=== PATIENT | male | born 1960 | race Caucasian/White ===

== ENCOUNTER 2018-05-28 16:46 | Inpatient (IN) | payer SELFPAY ==
[2018-05-28 17:15] LABS: #Lymphocytes 1.2 thou/uL (1.20-3.40); #Monocytes 0.4 thou/uL (0.11-0.59); %Basophils 0.6 % (0.0-1.0); %Eosinophils 0.4 % (0.0-10.0); %Lymphocytes 18.1 % (21.0-51.0); %Monocytes 5.3 % (0.0-10.0); %Neutrophils 75.6 % (42.0-75.0); Hemoglobin 11.7 g/dL (14.0-18.0); Mean Corpuscular HGB CONC 33.1 g/dL (32.0-36.0); Mean Corpuscular Hemoglobin 32.3 pg (27.0-31.0); Mean Corpuscular Volume 97.8 fL (78.0-98.0); Platelet Count 301 thou/uL (130-400); RBC Distribution Width 13.4 % (11.5-14.5); Red Blood Cell (RBC) Count 3.63 mill/uL (4.70-6.10); White Blood Cell (WBC) Count 6.6 thou/uL (4.8-10.8)
[2018-05-28 17:38] LABS: ALT (SGPT) 36 U/L (8-55); AST (SGOT) 40 U/L (5-34); Alkaline Phosphatase 153 U/L (40-150); Anion Gap 9 mmol/L (10-20); BUN (Urea Nitrogen) 5 mg/dL (8.4-25.7); Bilirubin, Total 0.4 mg/dL (0.2-1.2); Calc. Creatinine Clearance 0 mL/min (70-130); Calcium 7.3 mg/dL (7.8-10.44); Carbon Dioxide 21 mmol/L (22-29); Chloride 104 mmol/L (98-107); Estimated GFR-MDRD 81; Globulin 3.2 g/dL (2.4-3.5); Glucose 272 mg/dL (70-105); Potassium 4.3 mmol/L (3.5-5.1); Protein, Total 5.2 g/dL (6.0-8.3); Sodium 130 mmol/L (136-145)
--- NOTE | 2018-05-28 18:06 | RAD ---
CHEST PA AND LATERAL TWO VIEWS: 05/28/18 HISTORY: 57-year-old male with history of edema. Heart size is normal. The lungs show no acute process. Vertical height loss of one of the mid lower t horacic vertebral bodies which appears to be old. IMPRESSION: No acute intrathoracic disease. POS: [facility]
--- NOTE | 2018-05-28 18:26 | ULT ---
BILATERAL LOWER EXTREMITY VENOUS DUPLEX ULTRASOUND INCLUDING COLOR AND SPECTRAL DOPPLER IMAGIN05/28/18 HISTORY: 57-year-old male with history of bilateral lower extremity edema. Exam performed from groin to ankle including visualized greater saphenous, common femoral, superficia l femoral, profunda femoral, popliteal, trifurcation and posterior tibial vein regions. Phasic flow a t all levels with normal compressibility and normal augmentation. IMPRESSION: No evidence for deep venous thrombosis. POS: [facility]
[2018-05-28] MEDS ORDERED: Dextrose 5% in Water 1,000 ML IV PRN (18:52)
[2018-05-28] MEDS ORDERED: HumaLOG 300 UNITS/3 ML VIAL SC PRN ×2 (18:52)
[2018-05-28] MEDS ORDERED: Guaifenesin DM 100-10/5 ML UDCUP PO PRN (18:52)
[2018-05-28] MEDS ORDERED: Ondansetron PF 4 MG/2 ML Vial IVP PRN (18:52)
[2018-05-28] MEDS ORDERED: Acetaminophen 325 MG TAB PO PRN (18:52)
[2018-05-28] MEDS ORDERED: Dextrose 50% Abboject 50 ML SYRINGE SLOW IVP PRN (18:52)
--- NOTE | 2018-05-28 19:34 | CT ---
ABDOMEN AND PELVIC CT SCAN WITH AND WITHOUT IV CONTRAST 05/28/18 HISTORY: 57-year-old male with history of diarrhea, history of Whipple's surgery, fever, and abdominal pain. The lung bases are clear. The liver appears unremarkable. Status post cholecystectomy as well as find ings consistent with that of Whipple's surgery. Small sized spleen. 1.3 cm diameter left adrenal nodu le that cannot be definitively characterized and could be a small adenoma. No renal calculus or overt acute obstruction. No evidence for large or small bowel obstruction. Normal appearing appendix. IMPRESSION: Status post cholecystectomy and changes consistent with prior Whipple's surgery. No renal calculus o r obstruction. Normal appearing appendix. No other significant acute process within the abdomen o r pelvis. POS: [facility]
[2018-05-28] MEDS: Famotidine 20 MG TAB PO SCH (21:09)
--- NOTE | 2018-05-28 21:11 | HP ---
REASON FOR ADMISSION: Anasarca, new onset diabetes mellitus type 2, pancreatic insufficiency with prior history of Whipple's procedure, diarrhea, failure to thrive, hypoalbuminemia with severe protein malnutrition. HISTORY OF PRESENTING ILLNESS: The patient gives history of having progressive lower extremity edema from last 4 months or so. This has been progressively getting worse. Also, he has had a watery diarrhea as soon as he eats. He goes up to 6-8 times a day. He has not been able to buy pancreatic enzymes due to no insurance. 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 This was done in [place]. Patient also mentions that his stool is greasy at times. The patient also drinks nearly 6-7 beers and smokes a pack a day of cigarettes. No history of fever, chest pain, palpitations, or PND. His lower extremity swelling has made it difficult for him to ambulate. No history of hepatitis as far as he knows. The patient states he has not seen a physician for nearly 10-12 years or so now. PAST MEDICAL AND SURGICAL HISTORY: History of Whipple's procedure done in 2003 and history of pancreatic insufficiency. CURRENT MEDICATIONS: Omeprazole p.r.n., prostate supplement. ALLERGIES: No known drug allergies. PERSONAL HISTORY: Smokes one pack a day, drinks 6-7 beers daily. Does not abuse drugs. Lives with his friends. FAMILY HISTORY: Mother at the age of 76 years. She has had history of ovarian cancer, dementia and diabetes. Father had lobectomy for his lungs for unknown reason. He at the age of 79 years. CODE STATUS: FULL. Power of patent attorney is his sister. REVIEW OF SYSTEMS: The following complete review of systems was negative, unless otherwise mentioned in the HPI or below: Constitutional: Weight loss or gain, ability to conduct usual activities. Skin: Rash, itching. Eyes: Double vision, pain. ENT/Mouth: Nose bleeding, neck stiffness, pain, tenderness. Cardiovascular: Palpitations, dyspnea on exertion, orthopnea. Respiratory: Shortness of breath, wheezing, cough, hemoptysis, fever or night sweats. Gastrointestinal: Poor appetite, abdominal pain, heartburn, nausea, vomiting, constipation, or diarrhea. Genitourinary: Urgency, frequency, dysuria, nocturia. Musculoskeletal: Pain, swelling. Neurologic/Psychiatric: Anxiety, depression. Allergy/Immunologic: Skin rash, bleeding tendency. PHYSICAL EXAMINATION: GENERAL: The patient is a 57-year-old male who is currently not in any acute distress. VITAL SIGNS: Blood pressure 126/74, pulse 70 per minute, respiratory rate 20 per minute, temperature, patient is afebrile, saturating 95% on room air. NECK: Supple, no elevated JVD. EYES: Extraocular muscles intact. Pupils reacting to light. ORAL CAVITY: Mucous membranes are moist. No exudates or congestion. CARDIOVASCULAR SYSTEM: S1, S2 heard. Regular rhythm. RESPIRATORY SYSTEM: Air entry 1+ bilaterally. There is rhonchi plus bilateral. No wheezes. ABDOMEN: Slightly distended. No rigidity or guarding. Bowel sounds are heard. EXTREMITIES: There is 2+ peripheral edema, no calf tenderness. VASCULAR SYSTEM: Peripheral pulses 1+ bilateral, no ischemic ulcerations or gangrene. CENTRAL NERVOUS SYSTEM: No gross focal deficits noted. Patient is alert, awake , and oriented well. PSYCHIATRIC SYSTEM: The patient's mood is euthymic. No hallucinations or delusions. LABORATORY DATA AND IMAGING DATA: White count of 6, hemoglobin and hematocrit 11 and 35, MCV is 97, platelet count 301 with 75% neutrophils. Sodium 130, serum bicarbonate 21, BUN 5, creatinine 0.9. Serum glucose 272, total bilirubin 0.4, AST 40, ALT 36, alkaline phosphatase 153. BNP 135, albumin is 2.0, lipase is 6. Ultrasound venous Doppler of lower extremities done shows no evidence of DVT. Chest x-ray done shows no acute intrathoracic disease. EKG done shows sinus rhythm at 90 beats per minute. CLINICAL IMPRESSION AND PLAN: The patient will be admitted to medical floor for anasarca with pancreatic insufficiency and severe hypoalbuminemia with malabsorption. The patient has moderate to severe protein malnutrition. He also has history of alcohol abuse and smoking as well. We will obtain a CT of the abdomen and pelvis with and without contrast. He has diarrhea due to pancreatic insufficiency. We will place him on Lasix 40 mg IV q.12 hourly and spironolactone 25 mg twice daily. He will be on Creon 12,000 units 1 capsule 3 times daily with meals. We will consult Dr. Simeon Hastings who is regional program manager for Gastroenterology. The patient has new onset diabetes mellitus, likely due to pancreatic insufficiency and we will obtain insulin and C peptide level stat. Stool studies including cultures and C. difficile will be obtained. We will place him on Lantus 10 units subcu twice daily and slowly escalate the dose based on response. We will obtain a hepatitis panel. Based on CAT scan findings, we will obtain right upper quadrant ultrasound to see for signs of cirrhosis if he has. PT/INR will be obtained in the morning. MTDD
[2018-05-28 21:21] LABS: PTT 32.4 SEC (22.9-36.1); Prothrombin Time 13.3 SEC (12.0-14.7)
[2018-05-28 21:35] LABS: Iron 46 ug/dL (65-175); Iron Binding Capacity, Total 75 mcg/dL (261-462)
[2018-05-28 21:53] LABS: Ferritin 219.84 ng/mL (22-322)
[2018-05-28 22:03] LABS: Folate (Folic Acid) 7.8 ng/mL (7.0-31.4)
[2018-05-28 23:13] LABS: HBCM Index 0.05 S/CO (0-0.79); HBSAg Index 0.23 S/CO (0-0.99); Hep A IgM AB Non-Reactive (NonReactive); Hep A IgM S/CO 0.09 S/CO (0-0.79); Hep B Surf Ag Non-Reactive S/CO (NonReactive); Hep C IgG Ab Non-Reactive (NonReactive); Hep C Index 0.12 S/CO (0-0.79); Hepatitis B Core IgM Abs Non-Reactive (NonReactive)
[2018-05-29 04:58] LABS: #Lymphocytes 1.5 thou/uL (1.20-3.40); #Monocytes 0.4 thou/uL (0.11-0.59); #Neutrophils 1.6 thou/uL (1.40-6.50); %Basophils 0.7 % (0.0-1.0); %Eosinophils 1.3 % (0.0-10.0); %Lymphocytes 41.7 % (21.0-51.0); %Monocytes 11.6 % (0.0-10.0); %Neutrophils 44.8 % (42.0-75.0); Hemoglobin 9.6 g/dL (14.0-18.0); Mean Corpuscular HGB CONC 32.7 g/dL (32.0-36.0); Mean Corpuscular Hemoglobin 31.6 pg (27.0-31.0); Mean Corpuscular Volume 96.6 fL (78.0-98.0); Mean Platelet Volume 8.5 fL (7.4-10.4); Platelet Count 259 thou/uL (130-400); RBC Distribution Width 13.4 % (11.5-14.5); Red Blood Cell (RBC) Count 3.03 mill/uL (4.70-6.10); White Blood Cell (WBC) Count 3.6 thou/uL (4.8-10.8)
[2018-05-29] MEDS: Furosemide 40 MG/4 ML VIAL SLOW IVP SCH ×2 (05:12→14:53)
[2018-05-29 05:33] VITALS: BMI 20.2
[2018-05-29 06:03] LABS: Albumin 1.6 g/dL (3.5-5.0)
[2018-05-29 06:04] LABS: Chloride 108 mmol/L (98-107); Potassium 3.7 mmol/L (3.5-5.1); Sodium 133 mmol/L (136-145)
[2018-05-29 06:05] LABS: Calcium 7.1 mg/dL (7.8-10.44)
[2018-05-29 06:06] LABS: Globulin 2.5 g/dL (2.4-3.5); Glucose 169 mg/dL (70-105); Protein, Total 4.1 g/dL (6.0-8.3)
[2018-05-29 06:07] LABS: Anion Gap 6 mmol/L (10-20); Bilirubin, Total 0.3 mg/dL (0.2-1.2); Carbon Dioxide 23 mmol/L (22-29)
[2018-05-29 06:08] LABS: Alkaline Phosphatase 118 U/L (40-150)
[2018-05-29 06:09] LABS: Calc. Creatinine Clearance 107 mL/min (70-130); Estimated GFR-MDRD Greater than 90
[2018-05-29 06:10] LABS: BUN (Urea Nitrogen) 5 mg/dL (8.4-25.7)
[2018-05-29 06:11] LABS: ALT (SGPT) 28 U/L (8-55); AST (SGOT) 35 U/L (5-34)
[2018-05-29] MEDS: Famotidine 20 MG TAB PO SCH ×2 (09:11→21:04)
[2018-05-29] MEDS: Spironolactone 25 MG TAB PO SCH ×2 (09:11→17:54)
[2018-05-29] MEDS: Enoxaparin Sodium 40 MG/0.4 ML SYRINGE SC SCH (09:12)
[2018-05-29] MEDS: Pancrelipase DR 12000 1 CAP PO SCH ×3 (09:12→17:54)
--- NOTE | 2018-05-29 11:08 | PDOC.PN ---
- Subjective Encounter Start Date: 05/29/18 Encounter Start Time: 10:00 Subjective: no abd pain or nausea -: still has diarrhea, is passing lots of urine with diuresis - Objective Resuscitation Status: Resuscitation Status FULL:Full Resuscitation MAR Reviewed: Yes Vital Signs & Weight: Vital Signs (12 hours) Temp Pulse Resp BP Pulse Ox 05/29/18 07:35 98.0 F 79 18 114/69 97 05/29/18 04:00 98.6 F 82 18 110/66 96 05/28/18 23:46 98.1 F 92 18 117/72 98 Weight Weight 166 lb 0.129 oz I&O: 05/28/18 05/29/18 05/30/18 06:59 06:59 06:59 Intake Total 350 Output Total 500 Balance 350 -500 Result Diagrams: 05/29/18 03:58 05/29/18 05:39 Additional Labs: Accuchecks 05/29/18 05/28/18 05:17 21:08 POC Glucose 194 H 119 H Phys Exam - Physical Examination HEENT: PERRLA, moist MMs Neck: no JVD, supple Respiratory: no wheezing, no rales Cardiovascular: RRR, no significant murmur Gastrointestinal: soft, non-tender, positive bowel sounds Musculoskeletal: pulses present, edema present Neurological: non-focal, moves all 4 limbs Psychiatric: normal affect, A&O x 3 Dx/Plan (1) Pancreatic insufficiency Code(s): K86.89 - OTHER SPECIFIED DISEASES OF PANCREAS Status: Acute Comment : prior h/o Whipple's procedure (2) Diarrhea due to malabsorption Code(s): K90.9 - INTESTINAL MALABSORPTION, UNSPECIFIED; R19.7 - DIARRHEA, UNSPECIFIED Status: Acute (3) DM type 2 (diabetes mellitus, type 2) Status: Acute Qualifiers: Diabetes mellitus skilled nursing insulin use: without skilled nursing use Comment: new onset (4) Hypoalbuminemia Code(s): E88.09 - OTH DISORDERS OF PLASMA-PROTEIN METABOLISM, NEC Status: Acute (5) Alcohol abuse Code(s): F10.10 - ALCOHOL ABUSE, UNCOMPLICATED Status: Acute (6) FTT (failure to thrive) in adult Status: Acute - Plan CT abd results noted -: continue iv diuresis x 1 more day, creon enzymes with food -: nolvia ZABALA, hepatitis panel is -ve -: dietary consultation, GI consult -: is on lantus bid, stool studies pending * . Review of Systems - Medications/Allergies Allergies/Adverse Reactions: Allergies Allergy/AdvReac Type Severity Reaction Status Date / Time No Known Drug Allergies Allergy Verified 05/28/18 22:14 Medications: Current Medications Acetaminophen (Tylenol) 650 mg PO Q4H PRN PRN Reason: Headache/Fever/Mild Pain (1-3) Lipase/Protease/Amylase ([place]renda [place] [id number]) 1 cap PO TID-[facility] Last Admin: 05/29/18 09:12 Dose: 1 cap Dextrose/Water (Dextrose 50%) 25 gm SLOW IVP PRN PRN PRN Reason: Hypoglycemia Enoxaparin Sodium (Lovenox) 40 mg SC 0900 [facility] Last Admin: 05/29/18 09:12 Dose: 40 mg Famotidine (Pepcid) 20 mg PO BID [facility] Last Admin: 05/29/18 09:11 Dose: 20 mg Furosemide (Lasix) 40 mg SLOW IVP 0600,1400 [facility] Last Admin: 05/29/18 05:12 Dose: 40 mg Glucagon (Glucagon) 1 mg IM PRN PRN PRN Reason: Hypoglycemia Guaifenesin/Dextromethorphan (Robitussin Dm) 15 ml PO Q4H PRN PRN Reason: Cough Dextrose/Water (D5w) 1,000 mls @ 0 mls/hr IV .Q0M PRN PRN Reason: Hypoglycemia Insulin Human Lispro (Humalog) 0 units SC .MODERATE SLIDING SC PRN PRN Reason: Moderate Correctional Scale Insulin Human Lispro (Humalog) 0 units SC .BEDTIME SLIDING SC PRN PRN Reason: Bedtime Correctional Scale Ondansetron HCl (Zofran) 4 mg IVP Q6H PRN PRN Reason: Nausea/Vomiting Spironolactone (Aldactone) 25 mg PO BID-[facility] Last Admin: 05/29/18 09:11 Dose: 25 mg
[2018-05-29] MEDS ORDERED: GoLYTELY 4,000 ml Bottle PO SCH (20:00)
--- NOTE | 2018-05-29 22:06 | CON ---
DATE OF CONSULTATION: 05/29/2018 GASTROENTEROLOGY CONSULTATION NOTE CHIEF COMPLAINT: Diarrhea. HISTORY OF PRESENT ILLNESS: Mr. Osborn is a 57-year-old man who was admitted with weakness and diar rebeca for the last month and a half and lower extremity swelling. He reports that he has had 5-10 loo se to liquidy stools per day, sometimes with oil floating in the water. He has had no nausea or vomi ting. He has had progressive lower extremity edema over the last few months. He has blood with the stool several times per week. He thinks he has lost 15-20 pounds over the last year, but is unable t o really say for sure. He has some abdominal tenderness, but no ongoing pain. He drinks a 6 pack of beer per day. He has had no fever or chills. He smokes a pack a day. He underwent Whipple procedu re in 2003 for a benign pancreatic mass. He states he has not been on pancreatic supplements for ove r 10 years. He was found to have severe protein malnutrition. GI was consulted to help manage. PAST MEDICAL HISTORY: Alcohol abuse. PAST SURGICAL HISTORY: Whipple procedure in 2003 for benign pancreatic lesion. FAMILY HISTORY: Negative for GI malignancy. SOCIAL HISTORY: Smokes a pack a day, drinks at least a six pack per day. No drugs. ALLERGIES: No known drug allergies. MEDICATIONS PRIOR TO ADMISSION: None. CURRENT INPATIENT MEDICATIONS: Spironolactone, furosemide, famotidine, enoxaparin, Creon 12,000 unit s 1 cap t.i.d. REVIEW OF SYSTEMS: Negative x10 systems reviewed except as stated in history of present illness. PHYSICAL EXAMINATION: VITAL SIGNS: Temperature 98.0, pulse 85, blood pressure 143/90. GENERAL: He is in no acute distress. He is alert and oriented x3. HEENT: Eyes have no scleral icterus. Oropharynx is clear without lesions. He has one tooth. NECK: There is no cervical or supraclavicular lymphadenopathy. LUNGS: Clear to auscultation bilaterally. HEART: Regular rate and rhythm without murmur. ABDOMEN: Soft, nontender, nondistended. Bowel sounds are present. EXTREMITIES: 2+ pitting lower extremity edema. NEUROLOGIC: Cranial nerves are grossly intact. LABORATORY DATA: White blood cell count 3.6, hemoglobin 9.6, platelets 259. INR 1.0. Creatinine 0. 79, bilirubin 0.3, AST 35, ALT 28, alkaline phosphatase 118, albumin 1.6, vitamin B12 1402. Folate 7 .8, iron 46, TIBC 75, ferritin 219. Did have an elevated glucose on presentation at 272. IMAGING DATA: He had a CT scan of the abdomen and pelvis yesterday which was unremarkable except for the postsurgical changes from the Whipple. IMPRESSION: 1. Severe protein malnutrition with an albumin of 1.8. He has chronic diarrhea with this. He may h ave malabsorption given steatorrhea described. However, he has been off of pancreatic enzymes for ye ars and he just started having the diarrhea month and half ago. 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 2. Anemia of chronic disease. 3. Steatorrhea. 4. Chronic diarrhea. 5. Hematochezia, which is consistent with hemorrhoidal type bleeding. 6. Alcohol abuse. 7. Pancreatic insufficiency. RECOMMENDATIONS: 1. We will plan EGD and colonoscopy tomorrow. 2. Increase the Creon dose. 3. Check urine protein as well. 4. Please note that the stool studies are negative. Also add stool ova and parasite.
[2018-05-30] MEDS: Furosemide 40 MG/4 ML VIAL SLOW IVP SCH (05:25)
[2018-05-30] MEDS: Famotidine 20 MG TAB PO SCH ×2 (08:42→20:05)
[2018-05-30] MEDS: Spironolactone 25 MG TAB PO SCH ×2 (08:42→16:18)
[2018-05-30] MEDS: Pancrelipase DR 12000 1 CAP PO SCH ×3 (08:43→16:18)
--- NOTE | 2018-05-30 10:55 | PDOC.PN ---
- Subjective Encounter Start Date: 05/30/18 Encounter Start Time: 08:30 Subjective: is amb in room -: has almost finished his bowel prep - Objective Resuscitation Status: Resuscitation Status FULL:Full Resuscitation MAR Reviewed: Yes Vital Signs & Weight: Vital Signs (12 hours) Temp Pulse Resp BP BP Pulse Ox 05/30/18 08:40 110/72 05/30/18 07:46 95 05/30/18 07:24 98.2 F 108 H 16 90/58 L 95 05/30/18 00:00 97.8 F 82 18 109/74 98 Weight Weight 166 lb 0.129 oz I&O: 05/29/18 05/30/18 05/31/18 06:59 06:59 06:59 Intake Total 350 6354 Output Total 500 Balance 350 5854 Result Diagrams: 05/29/18 03:58 05/29/18 05:39 Additional Labs: Accuchecks 05/30/18 05/29/18 05/29/18 05:25 21:14 16:58 POC Glucose 86 109 150 H 05/29/18 11:53 POC Glucose 180 H Phys Exam - Physical Examination HEENT: PERRLA, moist MMs Neck: no JVD, supple Respiratory: no wheezing, no rales Cardiovascular: RRR, no significant murmur Gastrointestinal: soft, non-tender, positive bowel sounds Musculoskeletal: pulses present, edema present Neurological: non-focal, moves all 4 limbs Psychiatric: normal affect, A&O x 3 Dx/Plan (1) Pancreatic insufficiency Code(s): K86.89 - OTHER SPECIFIED DISEASES OF PANCREAS Status: Acute Comment : prior h/o Whipple's procedure (2) Diarrhea due to malabsorption Code(s): K90.9 - INTESTINAL MALABSORPTION, UNSPECIFIED; R19.7 - DIARRHEA, UNSPECIFIED Status: Acute (3) DM type 2 (diabetes mellitus, type 2) Status: Acute Qualifiers: Diabetes mellitus senior care insulin use: without bed bug exterminator use Comment: new onset (4) Hypoalbuminemia Code(s): E88.09 - OTH DISORDERS OF PLASMA-PROTEIN METABOLISM, NEC Status: Acute (5) Alcohol abuse Code(s): F10.10 - ALCOHOL ABUSE, UNCOMPLICATED Status: Acute (6) FTT (failure to thrive) in adult Status: Acute - Plan is on higher dose of pancreatic enzymes -: for egd/colonoscopy today -: likely dc plan in am -: on lantus, dc iv lasix, continue spironolactone -: dietary consultation for pancre insuff, low alb * . Review of Systems - Medications/Allergies Allergies/Adverse Reactions: Allergies Allergy/AdvReac Type Severity Reaction Status Date / Time No Known Drug Allergies Allergy Verified 05/28/18 22:14 Medications: Current Medications Acetaminophen (Tylenol) 650 mg PO Q4H PRN PRN Reason: Headache/Fever/Mild Pain (1-3) Lipase/Protease/[place] ([place] [id number]) 6 cap PO TID-[facility] Last Admin: 05/30/18 08:43 Dose: 6 cap Dextrose/Water (Dextrose 50%) 25 gm SLOW IVP PRN PRN PRN Reason: Hypoglycemia Enoxaparin Sodium (Lovenox) 40 mg SC 0900 [facility] Last Admin: 05/29/18 09:12 Dose: 40 mg Famotidine (Pepcid) 20 mg PO BID [facility] Last Admin: 05/30/18 08:42 Dose: 20 mg Furosemide (Lasix) 40 mg SLOW IVP 0600,1400 [facility] Last Admin: 05/30/18 05:25 Dose: 40 mg Glucagon (Glucagon) 1 mg IM PRN PRN PRN Reason: Hypoglycemia Guaifenesin/Dextromethorphan (Robitussin Dm) 15 ml PO Q4H PRN PRN Reason: Cough Dextrose/Water (D5w) 1,000 mls @ 0 mls/hr IV .Q0M PRN PRN Reason: Hypoglycemia Insulin Human Lispro (Humalog) 0 units SC .MODERATE SLIDING SC PRN PRN Reason: Moderate Correctional Scale Insulin Human Lispro (Humalog) 0 units SC .BEDTIME SLIDING SC PRN PRN Reason: Bedtime Correctional Scale Ondansetron HCl (Zofran) 4 mg IVP Q6H PRN PRN Reason: Nausea/Vomiting Spironolactone (Aldactone) 25 mg PO BID-[facility] Last Admin: 05/30/18 08:42 Dose: 25 mg
[2018-05-30] MEDS ORDERED: Lidocaine 1% PF 5 ML VIAL ONE (15:04)
[2018-05-30] MEDS ORDERED: ePHEDrine/0.9% NaCl/PF SYRINGE 50 mg/10 ml ONE (15:04)
[2018-05-30] MEDS ORDERED: PROPOFOL 200 MG/20 ML VIAL ONE (15:04)
[2018-05-30] MEDS ORDERED: Promethazine HCl 25 MG/ML VIAL SLOW IVP PRN (15:16)
[2018-05-30] MEDS ORDERED: Ondansetron HCl/PF 4 MG/2 ML Vial IVP PRN (15:16)
[2018-05-30] MEDS ORDERED: Promethazine HCl 25 MG/ML VIAL IM PRN (15:16)
--- NOTE | 2018-05-30 19:37 | OP ---
PREOPERATIVE DIAGNOSES: Chronic diarrhea and weight loss. PROCEDURE #1: PROCEDURE IN DETAIL: After informed consent was obtained, the patient was placed in the left lateral decubitus position. Anesthesia was administered per the Anesthesia Department. Forward-viewing end oscope was inserted into the esophagus under direct visualization and passed the pylorus with ease. The pylorus appeared normal. Once inside the pylorus, it appeared as the patient had had afferent an d efferent limb of his small bowel. No abnormalities were noted. Biopsies were taken randomly. The pylorus, antrum, body, fundus, and cardia were normal except for some enlarged gastric rugae. These were biopsied. Retroflexion in the stomach was normal. The esophagus was normal throughout. ASSESSMENT: 1. Status post pylorus sparing, Whipple procedure. 2. Enlarged gastric rugae - status post biopsy. 3. Otherwise normal esophagogastroduodenoscopy. RECOMMENDATIONS: 1. Await histopathology. 2. Proceed with colonoscopy. PROCEDURE #2: PROCEDURE IN DETAIL: After informed consent was obtained, the patient was placed in the left lateral decubitus position. Anesthesia was administered per the Anesthesia Department. Forward-viewing end oscope was inserted into the rectum after perianal inspection and rectal exam showed external hemorrh oids. This passed to the cecum with ease. The cecum, ileocecal valve, and appendiceal orifice were normal. The prep was good. Random biopsies were taken of the ascending and descending colon randoml y. The ascending, transverse, descending, sigmoid and rectum were normal except for a small polyp in the descending colon. This was removed with hot snare polypectomy and not retrieved. ASSESSMENT: 1. Descending colon polyp - status post polypectomy without tissue retrieval. 2. External hemorrhoids. 3. Otherwise normal colonoscopy. RECOMMENDATIONS: 1. Await histopathology. 2. Continue with higher dose Creon.
[2018-05-31] MEDS: Spironolactone 25 MG TAB PO SCH ×2 (08:54→16:44)
[2018-05-31] MEDS: Famotidine 20 MG TAB PO SCH (08:54)
[2018-05-31] MEDS: Pancrelipase DR 12000 1 CAP PO SCH ×3 (08:54→16:44)
[2018-05-31] MEDS: Enoxaparin Sodium 40 MG/0.4 ML SYRINGE SC SCH (08:55)
--- NOTE | 2018-05-31 14:45 | PDOC.PN ---
- Subjective Encounter Start Date: 05/31/18 Encounter Start Time: 14:41 Subjective: significant LE pain - Objective Resuscitation Status: Resuscitation Status FULL:Full Resuscitation Vital Signs & Weight: Vital Signs (12 hours) Temp Pulse Resp BP Pulse Ox 05/31/18 11:12 97.9 F 86 14 106/72 94 L 05/31/18 09:00 98 05/31/18 08:48 97.9 F 78 14 107/66 98 Weight Admit Weight 166 lb 0.129 oz Weight 166 lb 0.129 oz I&O: 05/30/18 05/31/18 06/01/18 06:59 06:59 06:59 Intake Total 6354 1240 Output Total 500 Balance 5854 1240 Result Diagrams: 05/29/18 03:58 05/29/18 05:39 Additional Labs: Accuchecks 05/31/18 05/31/18 05/31/18 12:06 11:40 05:13 POC Glucose 328 H 347 H 77 05/30/18 05/30/18 20:28 16:31 POC Glucose 238 H 120 H Phys Exam - Physical Examination ++distended weeping edematous LE, B/L Dx/Plan (1) Pancreatic insufficiency Code(s): K86.89 - OTHER SPECIFIED DISEASES OF PANCREAS Status: Acute Comment : prior h/o Whipple's procedure. Patient was doing well after the surgery. Diarrhea and Malabsorption is new. S/P Colonoscopy, no significant pathology noted. Pending biopsy result. Increased creaon. (2) Diarrhea due to malabsorption Code(s): K90.9 - INTESTINAL MALABSORPTION, UNSPECIFIED; R19.7 - DIARRHEA, UNSPECIFIED Status: Acute (3) FTT (failure to thrive) in adult Status: Acute (4) Hypoalbuminemia Code(s): E88.09 - OTH DISORDERS OF PLASMA-PROTEIN METABOLISM, NEC Status: Acute (5) Alcohol abuse Code(s): F10.10 - ALCOHOL ABUSE, UNCOMPLICATED Status: Acute (6) DM type 2 (diabetes mellitus, type 2) Status: Acute Qualifiers: Diabetes mellitus extermination inspector insulin use: without extermination inspector use Comment: new onset - Plan * .
[2018-05-31 17:40] VITALS: BP 102/69; TEMP 97.5
== END 2018-05-31 18:20 | disposition home or self-care (01) | DRG 438 ==
LOC: ERS 16:46 → T4-A 19:48
PROVIDERS: ADMIT Internal Medicine; ATTEND Internal Medicine
PROC: 0DB68ZX Excision of Stomach, Via Natural or Artificial Opening Endoscopic, Diagnostic (ICD-10-PCS; principal; 2018-05-30)
PROC: 0DBM8ZX Excision of Descending Colon, Via Natural or Artificial Opening Endoscopic, Diagnostic (ICD-10-PCS; 2018-05-30)
PROC: 0DBE8ZX Excision of Large Intestine, Via Natural or Artificial Opening Endoscopic, Diagnostic (ICD-10-PCS; 2018-05-30)
DX: K86.89 Other specified diseases of pancreas (principal); E43 Unspecified severe protein-calorie malnutrition; R60.1 Generalized edema; E88.09 Other disorders of plasma-protein metabolism, not elsewhere classified; E11.9 Type 2 diabetes mellitus without complications; K31.89 Other diseases of stomach and duodenum; R62.7 Adult failure to thrive; K52.9 Noninfective gastroenteritis and colitis, unspecified; D63.8 Anemia in other chronic diseases classified elsewhere; F10.10 Alcohol abuse, uncomplicated; K64.4 Residual hemorrhoidal skin tags; K63.5 Polyp of colon; F17.210 Nicotine dependence, cigarettes, uncomplicated; Z98.890 Other specified postprocedural states; Z68.20 Body mass index [BMI] 20.0-20.9, adult; Z79.899 Other long term (current) drug therapy
CPT/HCPCS: 36415; 36416; 71046; 74178; 80053; 80074; 81003; 82607; 82728; 82746; 83525; 83540; 83550; 83690; 83880; 84681; 85025; 85610; 85730; 87045; 87046; 87081; 87324; 87449; 87899; 88305; 93005; 93970; J1650; J1940; J2001; J2704